=== PATIENT | female | born 1965 | race Caucasian/White ===

== ENCOUNTER 2024-05-15 11:16 | Emergency (ER) | payer OTHER, SELFPAY ==
[2024-05-15 11:19] VITALS: BP 106/69
[2024-05-15 12:02] VITALS: BMI 27.1
--- NOTE | 2024-05-15 12:07 | ED.GENMED ---
History of Present Illness
General
Chief Complaint: Abdominal Pain
Time Seen by Provider: 05/15/24 12:06
History of Present Illness
History of Present Illness:
59-year-old female with history of anxiety and depression presents to the emergency department for evaluation of generalized abdominal pain beginning earlier in the week. She states that she felt she may have had a UTI last week evidenced by
occasional lower abdominal cramping and cloudy urine but did not opt to seek medical treatment at that time. Also notes headache, tactile fevers, and chills for the past 3 days. Had an episode of vomiting with hematemesis this morning. Denies
dysuria, hematuria, or urinary urgency. No history of abdominal surgeries
Past History
Past History
ED Past Medical History: Psychiatric (Anxiety, depression, prior suicide attempt) and Other (Gastritis)
ED Past Surgical History: Other (Lung surgery, deviated septum)
Social History
Tobacco: Non-smoker
Alcohol: Occasional
Drug: None
Personal:
Living: with family
Employment: Employed
Family History
Family History: Other
Review of Systems
Review of Systems
Allergies reviewed?: Yes
All Other Systems: ROS reviewed and negative except as documented in HPI and ROS
Phy Exam
Physical Exam
Physical Exam:
GEN: Well appearing, NAD, WDWN
Eyes: PERRLA, EOMs intact, no scleral icterus
HENT: NCAT, oral mucosa moist
Lungs: CTAB, no wheezes, rales, rhonchi, normal chest wall excursion
Cardiac: RRR, no M/R/G, no peripheral edema. Radial pulses 2+ bilat
Abdomen: S, NT, ND, NABS, no masses or hepatosplenomegaly
Neuro: AO x 3
MSK: No gross deformity or ecchymosis. No edema. No digital clubbing
Skin: No rashes, petechiae. Normal color, no pallor or jaundice.
Psych: Calm, cooperative, proper hygiene
Course
Orders/Labs/Results
Orders:
Orders
05/15/24 12:04
Complete Blood Count/With Diff Urgent
Comprehensive Metabolic Panel Urgent
Lipase Urgent
Urinalysis Reflex To Culture Urgent
Date Specimen was Collected: 05/15/24
Time Specimen was Collected: 12:03
Urine Microscopic Reflex Cult Urgent
05/15/24 12:17
0.9% Sodium Chloride 1000 ml [Nss] 1,000 ml IV BOLUS
Acetaminophen [Tylenol] 1,000 mg PO NOW STA
Ondansetron Injectable [Zofran] 4 mg IV NOW STA
05/15/24 13:00
CT Abd/Pel (IV only)-DH only Urgent
Comment:
Reason For Exam: fever, lower abd pain
05/15/24 14:55
CefTRIAXone [Rocephin] 1,000 mg IV NOW STA
Abnormal Lab Results
05/15/24
12:04
WBC 21.3 H 10^3/uL
(4.8-10.8)
RBC 3.78 L 10^6/uL
(4.20-5.40)
Hct 36.1 L %
(37.0-47.0)
MCH 32.5 H pg
(27.0-31.0)
Abs Immat Gran (auto) 0.2 H 10^3/uL
(0-0.05)
Absolute Neuts (auto) 17.1 H 10^3/uL
(1.4-6.5)
Absolute Monos (auto) 2.2 H 10^3/uL
(0.1-0.6)
Immature Gran % 0.7 H %
(0-0.5)
Neutrophils % 80.4 H %
(42.2-75.2)
Lymphocytes % 7.9 L %
(20.5-51.1)
Monocytes % 10.5 H %
(1.7-9.3)
Sodium 131 L mmol/L
(135-145)
Glucose 121 H mg/dl
(70-99)
Urine Ketones 3+ A
(Negative)
Ur Occult Blood Reflex 4+ A
(Negative)
Leukocyte Esterase Rfl Trace A
(Negative)
Urine RBC 3-6 A /HPF
(0-2)
Urine Bacteria (Reflex) Few A
(Negative)
05/15/24 12:04
05/15/24 12:04
Vital Signs
Initial and Last Documented VS:
Initial Vital Signs
Temp Pulse Resp BP Pulse Ox
100.6 F H 95 16 106/69 96
05/15/24 11:19 05/15/24 11:19 05/15/24 11:19 05/15/24 11:19 05/15/24 11:19
Last Documented Vital Signs
Temp Pulse Resp BP Pulse Ox
98.8 F 82 18 118/60 94
05/15/24 15:14 05/15/24 15:14 05/15/24 12:10 05/15/24 15:14 05/15/24 15:14
MDM/Problems Addressed
MDM/Problems Addressed:
59-year-old female being fevers. She is found to have significant leukocytosis, urinalysis is not overtly positive for UTI however CT scan shows no alternative etiology and there is suggestion of bladder wall thickening. Will treat this
empirically as a UTI, patient would prefer discharge to home which is not unreasonable at this time. Will start on cephalosporins, ED return parameters discussed
*Critical Care Note
Total Time (30-74mins, 75-104mins- exclusive of procedures): Not Applicable
ED Attending Note
-
Portions of this chart may have been created with voice recognition software.� Occasional wrong word or��sound alike� substitutions may have occurred due to the inherent limitations of voice recognition software.
Discharge Plan
Departure
Patient Disposition: Home (Routine Discharge)
Date of Disposition: 05/15/24
Time of Disposition: 14:58
Patient with high blood pressure during this ER visit?: No
Discharge Problem:
Urinary tract infection
Instructions: Urinary Tract Infection, Adult ED
Prescriptions:
New
cefdinir 300 mg capsule
300 mg PO BID 7 Days Qty: 14 0RF
No Action
mirtazapine 15 mg Tablet
15 mg PO HS
quetiapine 100 mg tablet
100 mg PO HS
alprazolam 0.5 mg Tablet
0.5 mg PO Q6HPRN PRN (Reason: anxiety) Qty: 0 0RF
escitalopram oxalate 5 mg Tablet
5 mg PO DAILY Qty: 0 0RF
Referrals:
Maylin Frye CRNP [Family Provider] -
Interventions
Interventions:
*Risk Screen - Suicide Last Done: 05/15/24 11:19
*General Assessment Last Done: 05/15/24 11:19
*Neglect/Abuse Screening Last Done: 05/15/24 11:19
ED- Fall Risk Assessment Last Done: 05/15/24 15:34
*ED COVID-19 Vaccine History Last Done: 05/15/24 15:34
*Nursing Disposition Last Done: 05/15/24 15:34
KP-Zrufpf-Gwzohrhsoe Assessment Last Done: 05/15/24 12:36
Discharge Date and Time
Discharge Date/Time: 05/15/24 15:35
Print Language: [place]
[2024-05-15 12:10] VITALS: BP 112/72
[2024-05-15 12:22] LABS: % Basophils 0.5 % (0-2); % Immature Granulocytes 0.7 % (0-0.5); % Lymphocytes 7.9 % (20.5-51.1); % Monocytes 10.5 % (1.7-9.3); % Neutrophils 80.4 % (42.2-75.2); Absolute Basophils 0.1 10^3/uL (0-0.2); Absolute Immature Granulocytes 0.2 10^3/uL (0-0.05); Absolute Lymphocytes 1.7 10^3/uL (1.2-3.4); Absolute Monocytes 2.2 10^3/uL (0.1-0.6); Absolute Neutrophils 17.1 10^3/uL (1.4-6.5); Hematocrit 36.1 % (37.0-47.0); Hemoglobin 12.3 g/dL (12.0-16.0); Mean Corp Hgb Conc. 34.1 g/dL (33.0-37.0); Mean Corpuscular Hgb 32.5 pg (27.0-31.0); Mean Corpuscular Volume 95.5 fL (81.0-99.0); Mean Platelet Volume 9.4 fL (7.4-10.4); Nucleated Red Blood Cells % 0 %; Platelet Count 333 10^3/uL (130-400); Red Blood Cell Count 3.78 10^6/uL (4.20-5.40); Red Cell Dist. Width 11.9 % (11.5-14.5); White Blood Cell Count 21.3 10^3/uL (4.8-10.8)
[2024-05-15 12:24] LABS: Urine Albumin Trace (Neg - Trace); Urine Bilirubin Negative (Negative); Urine Character Slightly Cloudy (Clear); Urine Color Yellow; Urine Glucose Negative (Negative); Urine Ketone 3+ (Negative); Urine Leukocyte Trace (Negative); Urine Nitrite Negative (Negative); Urine Occult Blood 4+ (Negative); Urine Specific Gravity 1.015 (<1.030); Urine Urobilinogen Negative (Neg - 1+)
[2024-05-15] MEDS: TYLENOL 1000 MG PO (12:30)
[2024-05-15] MEDS: NSS 1000 IV (12:30)
[2024-05-15] MEDS: ZOFRAN 4 MG IV (12:30)
[2024-05-15 12:39] LABS: ALT (SGPT) 20 U/L (0-35); AST (SGOT) 25 U/L (14-36); Albumin 4.5 g/dl (3.5-5.0); Alkaline Phosphatase 100 U/L (38-126); Blood Urea Nitrogen 11 mg/dl (7-17); Calcium 9.3 mg/dl (8.4-10.2); Carbon Dioxide 23 mmol/L (22-30); Chloride 98 mmol/L (98-107); Estimated Creatinine Clearance 80 ml/min; Glucose 121 mg/dl (70-99); Lipase 33 U/L (23-300); Sodium 131 mmol/L (135-145); Total Bilirubin 1.1 mg/dl (0.2-1.3); Total Protein 7.1 g/dl (6.3-8.2); eGFR > 60.00
[2024-05-15 12:40] LABS: Urine Bacteria Few (Negative)
[2024-05-15] MEDS: ROCEPHIN 1000 MG IV (15:09)
[2024-05-15 15:14] VITALS: BP 118/60
== END 2024-05-15 15:35 | disposition home or self-care (01) ==
LOC: EMR 11:16
PROVIDERS: EMERGENCY PHYSICIAN Emergency Medicine; FAMILY PHYSICIAN Nurse Practitioner
DX: N39.0 Urinary tract infection, site not specified (principal); F41.9 Anxiety disorder, unspecified; F32.A Depression, unspecified
CPT/HCPCS: 99285; 96374; 96375; 96361; 74177; 80053; 81003; 81015; 83690; 85025; Q9967

== ENCOUNTER → 2024-08-07 13:25 | Outpatient (REF) | payer OTHER, SELFPAY ==
[2024-08-07 16:01] LABS: % Basophils 1.1 % (0-2); % Eosinophils 3.4 % (0-6); % Immature Granulocytes 0.2 % (0-0.5); % Lymphocytes 21.6 % (20.5-51.1); % Monocytes 7.3 % (1.7-9.3); % Neutrophils 66.4 % (42.2-75.2); Absolute Basophils 0.1 10^3/uL (0-0.2); Absolute Eosinophils 0.3 10^3/uL (0-0.7); Absolute Lymphocytes 1.8 10^3/uL (1.2-3.4); Absolute Monocytes 0.6 10^3/uL (0.1-0.6); Absolute Neutrophils 5.6 10^3/uL (1.4-6.5); Hematocrit 43.2 % (37.0-47.0); Hemoglobin 14.1 g/dL (12.0-16.0); Mean Corp Hgb Conc. 32.6 g/dL (33.0-37.0); Mean Corpuscular Hgb 31.5 pg (27.0-31.0); Mean Corpuscular Volume 96.4 fL (81.0-99.0); Mean Platelet Volume 9.5 fL (7.4-10.4); Nucleated Red Blood Cells % 0 %; Platelet Count 346 10^3/uL (130-400); Red Blood Cell Count 4.48 10^6/uL (4.20-5.40); White Blood Cell Count 8.4 10^3/uL (4.8-10.8)
[2024-08-07 16:22] LABS: ALT (SGPT) 41 U/L (0-35); AST (SGOT) 35 U/L (14-36); Albumin 5.4 g/dl (3.5-5.0); Alkaline Phosphatase 59 U/L (38-126); Blood Urea Nitrogen 13 mg/dl (7-17); Calcium 9.9 mg/dl (8.4-10.2); Carbon Dioxide 22 mmol/L (22-30); Chloride 103 mmol/L (98-107); Direct Bilirubin 0.1 mg/dl (0.0-0.4); Glucose 115 mg/dl (70-99); HDL Cholesterol 82 mg/dl; LDL Cholesterol, Calculated 157 mg/dl; Potassium 4.2 mmol/L (3.5-5.1); Sodium 142 mmol/L (135-145); Total Bilirubin 0.5 mg/dl (0.2-1.3); Total Cholesterol 287 mg/dl (50-199); Total Protein 8.3 g/dl (6.3-8.2); Triglyceride 244 mg/dl (10-149); Very Low Density Lipoprotein 48 mg/dl (0-30); eGFR > 60.00
[2024-08-07 16:54] LABS: TSH Reflex To Free T4 1.79 uIU/ml (0.47-4.68)
== END ==
LOC: HWLAB 13:25
PROVIDERS: ATTENDING PHYSICIAN Registered Nurse Psychiatric/Mental Health; FAMILY PHYSICIAN Nurse Practitioner Adult Health
DX: F33.2 Major depressive disorder, recurrent severe without psychotic features (principal)
CPT/HCPCS: 36415; 80053; 80061; 82248; 84443; 85025

== ENCOUNTER 2025-03-01 12:02 | Emergency (ER) | payer OTHER, SELFPAY ==
[2025-03-01 12:07] VITALS: BP 157/74
[2025-03-01 12:44] VITALS: BP 131/76; BMI 25.8
--- NOTE | 2025-03-01 13:44 | ED.GENMED ---
History of Present Illness
General
Chief Complaint: Cold/Flu/URI Symptoms
Source: patient
Exam Limitations: none
Time Seen by Provider: 03/01/25 12:14
Nursing documentation reviewed up to this point in time: agreed with
History of Present Illness
History of Present Illness:
60 yo female here for 'bronchitis or pneumonia' states she has had a cough for past 10 days. Initially had sore throat but this has resolved. Also feels congested in her head. Denies fever, chills. Denies n/v/d/c.
Past History
Past History
ED Past Medical History: Psychiatric (Anxiety, depression, prior suicide attempt) and Other (Gastritis)
ED Past Surgical History: Other (Lung surgery, deviated septum)
Social History
Tobacco: Non-smoker
Alcohol: Occasional
Drug: None
Personal: Single
Living: with family
Employment: Disabled
Family History
Family History: Other
Review of Systems
Review of Systems
Allergies reviewed?: Yes
All Other Systems: ROS reviewed and negative except as documented in HPI and ROS
Constitutional: Denies fever, fatigue or chills
EENT: Reports other (Sinus congestion); Denies sore throat
Respiratory: Reports cough
Cardiac: Denies chest pain
ABD/GI: Denies abdominal pain, nausea, vomiting or diarrhea
Musculoskeletal: Reports no symptoms
Skin: Reports no symptoms
Neurological: Reports no symptoms
Phy Exam
Physical Exam
Physical Exam:
GENERAL: No acute distress. A&Ox3.
CONSTITUTIONAL: Afebrile.
EYES: clear, conjunctivae normal
ENMT: moist mucus membranes, Pharynx nl
RESPIRATORY: Regular respirations, nonlabored, lungs clear. Intermittent coarse cough, non productive. No wheezing.
CARDIOVASCULAR: Regular rate and rhythm, no murmurs, no rubs.
GI: Soft, nontender, normal BS
MUSCULOSKELETAL: Moves with ease. Well perfused.
SKIN: Warm, dry, pink
PSYCH: Normal mood and affect. Well kept, interactive and appropriate
NEUROLOGIC: Awake, alert and oriented. No focal neurological deficits
Course
Orders/Labs/Results
Orders:
Orders
03/01/25 12:20
CR Chest - 2 Views Urgent
Comment:
Reason For Exam: cough
Vital Signs
Initial and Last Documented VS:
Initial Vital Signs
Temp Pulse Resp BP Pulse Ox
98.2 F 94 16 157/74 96
03/01/25 12:07 03/01/25 12:07 03/01/25 12:07 03/01/25 12:07 03/01/25 12:07
Last Documented Vital Signs
Temp Pulse Resp BP Pulse Ox
98.5 F 82 20 131/76 99
03/01/25 12:44 03/01/25 12:44 03/01/25 12:44 03/01/25 12:44 03/01/25 12:44
MDM/Problems Addressed
Differential Diagnosis Includes:
bronchitis, pna, viral URI, sinusitis
MDM/Problems Addressed:
60 yo female here for 'bronchitis or pneumonia' states she has had a cough for past 10 days. Initially had sore throat but this has resolved. Also feels congested in her head. Denies fever, chills. Denies n/v/d/c.
Lungs CTA
Chest x-ray NAD
*Critical Care Note
Total Time (30-74mins, 75-104mins- exclusive of procedures): Not Applicable
ED Attending Note
-
Portions of this chart may have been created with voice recognition software.� Occasional wrong word or��sound alike� substitutions may have occurred due to the inherent limitations of voice recognition software.
Discharge Plan
Departure
Patient Disposition: Home (Routine Discharge)
Date of Disposition: 03/01/25
Time of Disposition: 13:50
Patient with high blood pressure during this ER visit?: No
Condition: Good
Discharge Problem:
Acute bronchitis
Instructions: Acute Bronchitis, Adult (DC)
Prescriptions:
New
doxycycline hyclate 100 mg capsule
100 mg PO BID Qty: 14 0RF
No Action
mirtazapine 15 mg Tablet
15 mg PO HS
quetiapine 100 mg tablet
100 mg PO HS
alprazolam 0.5 mg Tablet
0.5 mg PO Q6HPRN PRN (Reason: anxiety) Qty: 0 0RF
escitalopram oxalate 5 mg Tablet
5 mg PO DAILY Qty: 0 0RF
cefdinir 300 mg capsule
300 mg PO BID 7 Days Qty: 14 0RF
Referrals:
Mary Lerma CRNP [Non-Admitting Privileges] - As needed
Activity Restrictions/Additional Instructions:
As we discussed, I sent a prescription to your pharmacy for doxycycline to take twice a day for 7 days.
Interventions
Interventions:
*Risk Screen - Suicide Last Done: 03/01/25 12:07
*General Assessment Last Done: 03/01/25 12:44
*Neglect/Abuse Screening Last Done: 03/01/25 12:07
*ED- Fall Risk Assessment Last Done: 03/01/25 12:44
*ED COVID-19 Vaccine History Last Done: 03/01/25 12:44
*Nursing Disposition Last Done: 03/01/25 14:20
ED- Pulmonary Assessment Last Done: 03/01/25 12:44
Discharge Date and Time
Discharge Date/Time: 03/01/25 14:21
Print Language: GABONESE
== END 2025-03-01 14:21 | disposition home or self-care (01) ==
LOC: EMR 12:02
PROVIDERS: EMERGENCY PHYSICIAN Emergency Medicine; FAMILY PHYSICIAN Family Medicine
DX: J20.9 Acute bronchitis, unspecified (principal)
CPT/HCPCS: 99283; 71046